=== PATIENT | male | born 1955 | race Caucasian/White ===

== ENCOUNTER 2022-02-22 07:15 | Outpatient (CLI) | payer MEDICARE, BC, SELFPAY ==
--- NOTE | 2022-02-22 08:31 | W.ANESCHARGE ---
Anesthesia Charges Start Date/Time Anesthesia Start Date: 02/22/22 Anesthesia Start Time: 08:00 Stop Date/Time Anesthesia Stop Date: 02/22/22 Anesthesia Stop Time: 08:27 Summary Emergency: No
--- NOTE | 2022-02-22 09:33 | W.ANESCHARGE ---
Anesthesia Charges Start Date/Time Anesthesia Start Date: 02/22/22 Anesthesia Start Time: 08:00 Stop Date/Time Anesthesia Stop Date: 02/22/22 Anesthesia Stop Time: 08:27 Summary Emergency: No
== END 2022-02-22 07:16 | disposition home or self-care (01) ==
LOC: OP CLINIC 07:16
PROVIDERS: PCP Student in an Organized Health Care Education/Training Program; Visit Provider Internal Medicine Gastroenterology
DX: Z12.11 Encounter for screening for malignant neoplasm of colon (principal); Z85.038 Personal history of other malignant neoplasm of large intestine; Z98.0 Intestinal bypass and anastomosis status
CPT/HCPCS: 00811; 00812; 45378; J2704

== ENCOUNTER 2022-09-14 09:45 | Outpatient (RCR) | payer MEDICARE, BC, SELFPAY | END 2022-11-01 11:08 | disposition home or self-care (01) | PROVIDERS: PCP Student in an Organized Health Care Education/Training Program; Visit Provider Student in an Organized Health Care Education/Training Program | DX: M54.50 Low back pain, unspecified (principal); Z51.89 Encounter for other specified aftercare | CPT/HCPCS: 97110; 97140; 97161 ==

== ENCOUNTER 2024-11-28 14:30 | Outpatient (RCR) | payer MEDICARE, BC, SELFPAY | END 2025-03-11 14:59 | disposition home or self-care (01) | PROVIDERS: PCP Student in an Organized Health Care Education/Training Program; Visit Provider Student in an Organized Health Care Education/Training Program | DX: M25.552 Pain in left hip (principal); G89.29 Other chronic pain; Z51.89 Encounter for other specified aftercare | CPT/HCPCS: 97110; 97140; 97161 ==